=== PATIENT | female | born 1975 | race Caucasian/White ===

== ENCOUNTER 2025-02-06 18:15 | Emergency (ER) | payer SELFPAY ==
[~2025-02-06] VITALS: Ht 142.2 cm; Wt 91.0 kg
[2025-02-06 18:33] VITALS: O2SAT 99
[2025-02-06] MEDS: TETANUS, DIPHTHERIA, PERTUSSIS VAC/PF 0.5ML (>10YR OLD) IM ONE (20:49)
[2025-02-06] MEDS: ACETAMINOPHEN 325MG TABLET PO ONE (20:49)
[2025-02-06] MEDS ORDERED: BO1 TP (21:16)
[2025-02-06] MEDS ORDERED: TOPUD MT (21:16)
[2025-02-06 21:30] VITALS: BP 158/88; PULSE 72; RESP 18; TEMP 37; O2SAT 99
[2025-02-06] MEDS: BACITRACIN ZINC OINT UDPKT TOP ONE (21:33)
== END 2025-02-06 21:45 | disposition home or self-care (01) ==
LOC: ER 18:15
DX: T23.202A Burn of second degree of left hand, unspecified site, initial encounter (principal); X08.8XXA Exposure to other specified smoke, fire and flames, initial encounter; Y93.89 Activity, other specified; Y92.89 Other specified places as the place of occurrence of the external cause; Y99.8 Other external cause status
CPT/HCPCS: 90471; 90715; 99283